=== PATIENT | male | born 1965 | race Caucasian/White ===

== ENCOUNTER 2018-04-29 07:23 | Emergency (ER) | payer SELFPAY ==
[~2018-04-29] VITALS: Ht 177.8 cm; Wt 76.8 kg
[2018-04-29 07:27] VITALS: BP 144/89
--- NOTE | 2018-04-29 07:32 | NUR ---
PT AMB TO BED 7
--- NOTE | 2018-04-29 07:33 | NUR ---
Note undone in EDM - 04/29/18 at 0750 by [email or web address] C52/M BIB SELF WITH C/O BL FOOT PAIN WORSE ON THE RT WITH REDNESS & SWELLINGX 2 DAYS.AAOX4 WITH EVEN AND STEADY GAIT; LUNGS CLEAR BL. PATIENT STATES PAIN OF 10/10 AT THIS TIME. PATIENT POSITIONED FOR COMFORT; RIGHT LEG ELEVATED; BEDRAILS UP X2; BED DOWN. ER MADE AWARE OF PT STATUS.
--- NOTE | 2018-04-29 07:33 | NUR ---
52/M BIB SELF WITH C/O BL FOOT PAIN WORSE ON THE RT WITH REDNESS & SWELLINGX 2 DAYS.AAOX4 WITH EVEN AND STEADY GAIT; LUNGS CLEAR BL. PATIENT STATES PAIN OF 10/10 AT THIS TIME. PATIENT POSITIONED FOR COMFORT; RIGHT LEG ELEVATED; BEDRAILS UP X2; BED DOWN. ER MD MADE AWARE OF PT STATUS.
--- NOTE | 2018-04-29 08:00 | NUR ---
Dr. Dacosta evaluating patient at bedside.
--- NOTE | 2018-04-29 08:00 | NUR ---
Alejandro gonzáles in [facility] - 04/29/18 at 0801 by [email or web address] Patient being evaluated by DR RODRIGUEZ at bedside.
[2018-04-29] MEDS ORDERED: KETOROLAC 60 MG/2 ML VIAL IM ONE (08:15)
[2018-04-29] MEDS ORDERED: DEXAMETHASONE 10 MG/ML VIAL IM ONE (08:15)
--- NOTE | 2018-04-29 08:37 | NUR ---
Per orthotic finish grinding technician, the patient refused the XRAY. Dr. Dacosta notified.
--- NOTE | 2018-04-29 08:43 | NUR ---
Dr. Dacosta re-evaluating patient at bedside.
[2018-04-29 09:53] VITALS: BP 130/79
== END 2018-04-29 09:53 | disposition home or self-care (01) ==
LOC: MED 07:23
DX: M25.571 Pain in right ankle and joints of right foot (principal)
CPT/HCPCS: 96372; 99284; J1100; J1885